=== PATIENT | male | born 1990 | race Caucasian/White ===

== ENCOUNTER 2023-03-22 05:17 | Observation (INO) ==
--- NOTE | 2023-03-21 10:13 | Anesthesiology Consultation ---
Date of Service March 21, 2023 Assessment & Plan (1) Encounter for pre-operative examination: - Pt scheduled for admission post-operatively. Plan for COVID Olivera AM DOS due to possibility that patient may have a roommate. OR aware. Olivera order placed. - COVID screening: Per assessment on 03/21: No known COVID-19 positive contacts or current COVID-19 related symptoms. Travel screen negative. At surgeon discretion if preop Covid testing being done. Chart Review Chart Review: Acceptable Risk for Surgery and Patient NOT seen in Pre Admission Testing History Surgery Operation Date: 03/22/23 07:15 Proposed Procedures p Right Tibia Open Reduction Internal Fixation - Urbano Nugent MD Height/Weight Height: 5 ft 6 in Weight: 56.699 kg Allergies Allergy/AdvReac Type Severity Reaction Status Date / Time amoxicillin Allergy Hives/Nause Verified 03/22/23 05:47 a Medications Home Medications Medication Instructions Recorded Confirmed Last Taken oxycodone 5 mg tablet 5 mg PO Q6H PRN pain #12 tabs 03/16/23 03/22/23 03/22/23 04:00 Active Medications Generic Name Dose Route Start Last Admin Trade Name Freq PRN Reason Stop Dose Admin Lactated Ringer's 1,000 mls @ 15 mls/hr 03/22/23 06:00 03/22/23 05:44 Lr IV 03/23/23 05:59 15 mls/hr .Q24H SERGIO Administration Past Medical History Medical History History of asthma "Asthmatic bronchitis" as child History of COVID-19 Early 2020- loss of taste > resolved History of fracture of rib 12/2022, Left #5-6 ribs (r/t fall from snowboarding) > resolved/no current issues Past Surgical History Surgical History Hx of wisdom tooth extraction Social History Smoking Status: Current every day smoker tobacco type: e-cigarettes Smoking cigarettes per day: CIGARETTES YEARS AGO; VAPES ON DAILY BASIS Do You Dip or Chew Tobacco: No Hx Alcohol Use: Yes alcohol intake frequency: a few times a week Hx Substance Use: Yes (MEDICAL CARD) substance use type: marijuana Last Used Substance Other:: DAILY Physical Exam Vital Signs Last Vital Signs Temp 37.1 C 03/22/23 05:41 Pulse 73 03/22/23 05:41 Resp 20 03/22/23 05:41 BP 149/92 H 03/22/23 05:41 Pulse Ox 95 03/22/23 05:41 O2 Del Method Room Air 03/22/23 05:41 Testing Laboratory Results Blood Type O Negative 03/22/23 05:38 Antibody Screen NEGATIVE 03/22/23 05:38 Chest X-Ray Date: 12/07/22 No acute displaced rib fractures. Lungs are clear.
[~2023-03-22 05:17] MED LIST: ALLERGY Noted to ORDERED Medication SCH
[2023-03-22] MEDS ORDERED: LR 15ML/HR IV SCH (06:00)
[2023-03-22] MEDS ORDERED: ceFAZolin 2000MG 2,000 MG/15 ML SYR IV SCH (06:00)
[2023-03-22] MEDS ORDERED: ROPIVACAINE 0.5% 5 MG/ML 30 ML VIAL ONE (06:16)
[2023-03-22] MEDS ORDERED: SODIUM CHLORIDE 0.9% PF INJ 10 ML VIAL ONE (06:22)
[2023-03-22] MEDS ORDERED: Nursing to Pharmacy Communication SCH (06:30)
[2023-03-22] MEDS ORDERED: ceFAZolin 2,000 MG/15 ML IV PUSH IV ONE (06:32)
--- NOTE | 2023-03-22 06:38 | History & Physical Bridge Note ---
Date of Service March 22, 2023 History & Physical Bridge Note I have examined the patient, reviewed the History & Physical and in the interval since the performance of the History & Physical I have noted the following changes of clinical significance: no changes noted Leg inspected. Swelling mild to moderate with no blistering or breaks in the skin. Yellowish discoloration. Skin wrinkles present. Numbness on the dorsum of the foot lateral border of the foot and lateral plantar foot. Some numbness over the dorsal toes. Intact sensation in the medial arch and medial foot. Intact sensation first webspace. He cannot activate ankle plantarflexion or dorsiflexion. Perhaps he can activate a trace bit of foot eversion. He can extend big toe and little toes with 4 out of 5 strength. He can plantarflex big toe and little toes with the same. DP pulses 1+. Discussed surgical plan. Plan ORIF through anterolateral plating anterior approach. Possible syndesmosis fixation. Will evaluate and monitor the posterior fracture which is nondisplaced. If any changes would need to turn prone and do posterior malleolar plating.
[2023-03-22] MEDS ORDERED: LIDOCAINE 2% 2 ML VIAL/AMP(20MG/ML) INFIL ONE (06:43)
[2023-03-22] MEDS ORDERED: DEXAMETHASONE SOD INJ 4 MG/ML VIAL ONE (06:43)
[2023-03-22] MEDS ORDERED: PROPOFOL IV EMULSION 10 MG/ML 20 ML VIAL IV ONE (06:43)
[2023-03-22] MEDS ORDERED: ONDANSETRON INJ 2 MG/ML 2 ML VIAL ONE (06:43)
[2023-03-22] MEDS ORDERED: MIDAZOLAM HCL 1 MG/ML 2ML VIAL ONE ×2 (06:44→06:56)
[2023-03-22] MEDS ORDERED: fentaNYL citrate PF 100 MCG/2 ML VIAL ONE ×2 (06:44)
[2023-03-22] MEDS ORDERED: BUPIVACAINE/EPINEPHRINE 0.5% MPF 1:200,000 30 ML VIAL ONE (07:03)
[2023-03-22] MEDS ORDERED: LIDOCAINE 1%/EPINEPHRINE 1:100,000 20 ML VIAL ONE (07:04)
[2023-03-22] MEDS ORDERED: HYDROmorphone INJ 1 MG/ML SYRINGE IV PRN (07:13)
[2023-03-22] MEDS ORDERED: ONDANSETRON INJ 2 MG/ML 2 ML VIAL IV PRN (07:13)
[2023-03-22] MEDS ORDERED: LABETALOL HCL IV 5 MG/ML 20ML IV PRN (07:13)
[2023-03-22] MEDS ORDERED: ATROPINE SULFATE 0.1 MG/ML 10ML SYR IV PRN (07:13)
[2023-03-22] MEDS ORDERED: PROMETHAZINE HCL 6.25 MG in SODIUM CHLORIDE 0.9% 50 ML IV PRN (07:13)
[2023-03-22] MEDS ORDERED: TRANEXAMIC ACID / 0.7% NACL 1000MG/100ML BAG IV ONE (08:05)
[2023-03-22] MEDS ORDERED: TRANEXAMIC ACID / 0.7% NACL 1,000 MG/100 ML BAG IV ONE ×2 (08:15→17:50)
--- NOTE | 2023-03-22 11:15 | Fluoroscopy Report ---
FL tibia/fibula RT 2V CLINICAL HISTORY: RT TIBIA 0RIF TECHNIQUE: 6 views were obtained with the C-arm in the OR with the above procedure. Total fluoroscopy time was 88 seconds. Radiation dose was 1.02 mGy. Comparison: Comparison is made to CT tibia and fibula 03/16/2023 FINDINGS/IMPRESSION: Intraoperative images were obtained of open reduction internal fixation of tibia l fracture with plate and screw fixation hardware placement. Please correlate with intraoperative fluoroscopy and operative report. ACT 112: Negative or not required by law. Electronically signed by: Magdy Linton M.D. 03/22/2023 11:14 AM
--- NOTE | 2023-03-22 11:45 | Operative Report ---
Post Operative Report Pre & Post Diagnosis Operation Date: 03/22/23 07:15 Pre-Op Diagnosis: Right tib-fib fracture Post-Op Diagnosis: Same I identified the patient and participated in the time-out.: Yes Procedure Operation Date: 03/22/23 07:15 Actual Procedures p Right Tibia Open Reduction Internal Fixation right tibia fracture with open reduction internal fixation of distal tibiofibular syndesmosis (Right) - Urbano Nugent MD Surgeon Urbano Nugent MD Efficiency Analyst THELMA Brown, Shari Francisco, MS 2, edwin Sutton, fellow Estimated Blood Loss 25 Findings Consistent with Post-Op Diagnosis Specimens None Anesthesia Type General Regional Complications none Disposition Accompanied Patient To Recovery: No Disposition: Recovery Room Indications Don is 33. He injured his right leg 1 week ago. He has a proximal fibular fracture. Oblique us spiral distal tibia fracture beginning about 3 cm above the ankle joint. There is comminuted nondisplaced extension into the posterior and medial malleolus. There is also suspected syndesmotic disruption. Treatment options risks benefits were discussed and recommended operative intervention he agreed to proceed. Description of Procedure Informed consent. Patient identified. He identified the operative site as the right ankle. I marked with my initials. Preop surgical timeout performed. Preop dose of IV antibiotics given. He was taken to the operating room positioned supine on the OR table. A bump was placed under the right hip. Tourniquet on the right thigh. The leg was shaved and then scrubbed. Prepped and draped in the usual sterile fashion. The fracture was unstable. Care was taken to maintain longitudinal traction and prevent fracture displacement. Swelling was mild to moderate without any significant break in the skin. DVT prophylaxis with foot pumps intraoperatively. Postop with mechanical devices early mobility and chemoprophylaxis. Preop dose of TXA. Fluoroscopic guidance was utilized throughout the surgical procedure. A bone foam bump was placed under the right leg. Limb exsanguinated with the Esmarch. Tourniquet inflated 250 mmHg. I made an approximate 20 cm incision paralleling the course of the tibialis anterior tendon. This was followed by blunt dissection down through the subcutaneous tissues. The anterior compartment fascia was identified and opened just lateral to the crest of the tibia. The tibialis anterior tendon was identified. It was exposed down to the level of the retinaculum. The retinaculum and anterior compartment tendons were then elevated up off of the anterior joint capsule. The fracture site was identified and cleaned of hematoma and comminuted bone fragments as well as irrigated. It was then reduced anatomically with a alligator clamp placed directly on bone under direct visualization. I then inserted two 3.5 mm bicortical lag screws with excellent purchase and stability. I then selected a 10 hole anterolateral Synthes plate. The plate was positioned visually and fluoroscopically to allow adequate proximal and distal fixation. I provisionally fixed it distally with a pin and then inserted a 3.5 mm bicortical regular cortical screw proximally. Just at the level of the fracture site. I then inserted 5 distal locking screws which were unicortical. In order to prevent displacement of the posterior malleolus fracture I limited the length of the screws to 24 to 26 mm. I then placed 3 additional bicortical proximal locking screws. The fracture was anatomically aligned. The hardware was in good position and multiplanar fluoroscopy. The posterior malleolar fracture which was evaluated prior to the start of the surgery with fluoroscopy, was unchanged in alignment. The syndesmosis was grossly unstable. I took out the most proximal of the distal screws. The ankle was placed into maximum dorsiflexion and a large bone clamp was placed across the ankle. This was done after doing some fluoroscopic assessment of optimal places based upon the medial fracture pattern which showed some comminution at the fracture site as well as a nondisplaced fracture going into the medial malleolus. I do not think that a tight rope would gain adequate purchase over here and elected to go with multiple tricortical positioning screws. I made a 5 cm incision over the distal fibula and bluntly dissected down to the bone. The large bone clamp was placed directly on the fibula and then on good bone medially. With the ankle in maximum dorsiflexion the clamp was tightened. I then using fluoroscopic guidance medial forestry pilot hole from the fibula across the tibia posterior to the plate between the proximal and distal row of interlocking screws within the distal array of the plate. I inserted a 50 mm screw which was tricortical but did not go through the medial cortex. This was due to to medial cortex comminution and also not wanting to displace any of the medial fractures. The medial malleolar fracture was able to be visualized and was nondisplaced. Coronal plane. A second 3.5 mm try cortical positioning screw for the syndesmosis was then inserted just above this in a similar fashion. I was then able to reinsert the more proximal of the distal locking screws. The syndesmosis was stable. The fracture and hardware were in good position and the posterior malleolus fracture was not displaced at all. The tourniquet is let down after about 90 minutes of inflation and meticulous hemostasis was performed. Copious irrigation was done and the soft tissues were kept moist throughout the surgical procedure. The lateral incision was closed with 2-0 Vicryl and noemy. The anterior incision was closed with 0 Vicryl for the deep layer followed by 2-0 Vicryl's and noemy on the skin. The leg was cleaned with wet and dry sponges and a soft sterile dressing was applied Xeroform 4 x 4's ABD soft wrap and a posterior splint with the ankle in neutral position. Padding on the heel and malleoli. He was then awakened from anesthesia and taken to recovery in stable condition. There were no specimens or complications. Counts were correct and blood loss is estimated to be 25 cc. At the conclusion of the operation spoke to his significant other and parents. Discussed findings and postoperative plan. The interfrag screws were 3.5 mm in diameter. 3 bicortical locking screws were placed proximally along with a bicortical regular cortical screw. 5 distal locking screws were inserted. Synthes hardware was utilized. The syndesmotic screws were 3.5 mm Synthes screws. The plan is admission to the hospital for pain control and elevation. The anterior compartment was left open. Nonweightbearing. Chemoprophylaxis beginning in the morning. I attest to the content of the Intraoperative Record and any orders documented therein. Any exceptions are noted below.
--- NOTE | 2023-03-22 11:57 | Operative Report ---
Post Operative Report Pre & Post Diagnosis Operation Date: 03/22/23 07:15 Pre-Op Diagnosis: Right Lower Leg Posterior Malleolus Fracture Post-Op Diagnosis: Right Lower Leg Posterior Malleolus Fracture I identified the patient and participated in the time-out.: Yes Procedure Operation Date: 03/22/23 07:15 Actual Procedures p Right Tibia Open Reduction Internal Fixation(Right) - Urbano Johnson MD Surgeon Dr Johnson Independent Crop Consultant THELMA Brown, Shari Francisco, MS 2, edwin Sutton, fellow Estimated Blood Loss 25 Findings Consistent with Post-Op Diagnosis Specimens none Description of Procedure Pt was taken to operating room, placed under general anesthesia with peripheral nerve block. Pt was given 2g Ancef IV. Prepped and draped in sterile fashion. I was present during the entire case and assisted with positioning, instrumentation, closure and dressings. Please see Dr. Johnson's op report for further detail. Pt was awake and transferred to PACU in stable condition I attest to the content of the Intraoperative Record and any orders documented therein. Any exceptions are noted below.
[2023-03-22] MEDS ORDERED: MoRPHine SULFATE 2 MG/ML CARP IV PRN (13:05)
[2023-03-22] MEDS: ONDANSETRON INJ 2 MG/ML 2 ML VIAL IV PRN (13:52)
[2023-03-22] MEDS: SODIUM CHLORIDE 0.9% 1000ML 1,000 ML IV SCH (14:01)
[2023-03-22] MEDS: oxyCODONE/ACETAMINOPHEN 5mg/325mg TAB PO PRN ×3 (15:04→23:41)
[2023-03-22] MEDS: MoRPHine SULFATE 4 MG/ML 1 ML CARP\\VIAL IV PRN ×3 (16:09→20:52)
[2023-03-22] MEDS: ceFAZolin 2000MG 2,000 MG/15 ML SYR IV SCH (17:57)
--- NOTE | 2023-03-22 19:59 | Orthopedic Progress Note ---
Date of Service March 22, 2023 Assessment & Plan (1) Closed fracture of distal end of right tibia: Plan: Findings discussed. Surgery reviewed. Plan is pain control elevation icing. DVT prophylaxis starting in the morning. I think his block is still functioning to account for his sensory and motor deficits. Nonweightbearing. Postop antibiotics. Stable postop. (2) Closed fracture of proximal end of right fibula: Admission and Anticipated Discharge Date Admission Date: March 22, 2023 Subjective Feels well. The block feels like it is wearing off. Increased pain. Physical Exam Physical Exam: Toes are warm with capillary refill less than 2 seconds. He has 4 out of 5 plantarflexion strength but cannot dorsiflex the toes. DP pulses 1+. Swelling is minimal. Intact sensation plantarly but numb dorsally. Likely secondary to the block Results & Data Vital Signs (Past 12 Hours) Vital Signs Temp Pulse Pulse Resp BP Pulse Ox O2 Del Method 03/22/23 19:34 36.7 C 77 18 119/79 100 Room Air 03/22/23 16:06 36.7 C 88 14 128/85 99 Room Air 03/22/23 15:06 36.9 C 89 16 142/88 H 100 Room Air 03/22/23 14:01 37.0 C 66 16 137/79 99 Room Air 03/22/23 13:35 36.8 C 71 16 132/81 98 Room Air 03/22/23 13:09 36.7 C 86 16 121/75 98 Room Air 03/22/23 12:45 68 12 119/69 94 Room Air 03/22/23 12:30 72 12 119/73 95 Room Air 03/22/23 11:50 85 18 134/84 93 Room Air 03/22/23 12:20 78 12 122/66 95 Room Air 03/22/23 12:10 77 12 131/65 94 Room Air 03/22/23 12:00 78 14 127/72 93 Room Air 03/22/23 11:40 94 H 20 161/85 H 97 Room Air 03/22/23 11:37 36.1 C L 90 16 141/82 H 98 Room Air (1) Closed fracture of distal end of right tibia Encounter type: initial encounter Fracture morphology: other fracture Qualified Code(s): S82.391A - Other fracture of lower end of right tibia, initial encounter for closed fracture (2) Closed fracture of proximal end of right fibula Encounter type: initial encounter Fracture morphology: other fracture Qualified Code(s): S82.831A - Other fracture of upper and lower end of right fibula, initial encounter for closed fracture
[2023-03-22] MEDS ORDERED: HYDROmorphone INJ 0.5 MG/0.5 ML SYR IV STA (22:09)
[2023-03-23] MEDS: MoRPHine SULFATE 4 MG/ML 1 ML CARP\\VIAL IV PRN ×7 (01:12→16:15)
[2023-03-23] MEDS: ceFAZolin 2000MG 2,000 MG/15 ML SYR IV SCH (01:48)
[2023-03-23] MEDS: SODIUM CHLORIDE 0.9% 1000ML 1,000 ML IV SCH (02:10)
[2023-03-23] MEDS: oxyCODONE/ACETAMINOPHEN 5mg/325mg TAB PO PRN ×3 (04:33→18:32)
[2023-03-23] MEDS: ACETAMINOPHEN 500 MG TAB PO PRN ×2 (05:02→07:35)
[2023-03-23] MEDS: APIXABAN 2.5 MG TAB PO SCH ×2 (09:05→21:34)
[2023-03-23] MEDS: ONDANSETRON INJ 2 MG/ML 2 ML VIAL IV PRN (09:10)
--- NOTE | 2023-03-23 10:08 | Orthopedic Progress Note ---
Date of Service March 23, 2023 Assessment & Plan Admission and Anticipated Discharge Date Admission Date: March 22, 2023 Subjective Patient was seen and examined bedside. He is postop day 1 status post right OR IF of tibia and syndesmotic for his fixation. Patient reports that he is not doing great. He is in a considerable amount of pain. He says that he had a horrible night and was in tears at one point. He did not get much sleep. He says that they have been giving him Percocet and Tylenol for pain. They discontinued his IV this morning and he has not had any more IV pain meds. He says that his pinky is somewhat tingly. He denies any complete numbness in his foot. He says that he has a burning sensation over the medial and lateral aspect of his foot, mostly on the medial aspect. He has been nauseous from the pain meds. He denies any vomiting. Denies any fevers or chills but says that when he is in pain he gets shaky. Physical Exam 2 Physical Exam: Patient is lying down in the bed, appears to be in pain. Splint is intact and does not appear to be too tight. Patient is able to wiggle his toes. Skin is warm and pink. Sensation intact to light touch of all 5 digits. He is able to bend his knee. He is able to do a straight leg raise. Results & Data Vital Signs (Past 12 Hours) Vital Signs Temp Pulse Resp BP Pulse Ox O2 Del Method 03/23/23 07:11 36.8 C 68 14 139/91 100 Room Air 03/23/23 03:20 36.3 C L 73 16 141/89 H 100 Room Air 03/22/23 23:35 36.7 C 86 18 130/79 98 Room Air Laboratory Results Patient is a 33-year-old male postop day 1 status post right leg ORIF tibia and syndesmotic fixation Keep splint in tact. Plan now is to help control the patient's pain better. Patient is getting 2 percocet every 4 hours and 4mg morphine every 4 hours and is reporting that isnt touching his pain. Could add scheduled tramadol or Dilaudid prn for breakthrough pain. Will discuss with Dr Nugent. Anette for nausea. Continue strict icing and elevating. Eliquis 2.5mg BID for DVT phx started this morning. TEDS and SCDs in place. NWB x 6 weeks. Vitals are stable. Labs are pending.
[2023-03-23 10:39] LABS: Basophils # (auto) 0.03 K/uL (0-0.2); Basophils % (auto) 0.3 %; Eosinophils % (auto) 1.1 %; Hematocrit (blood only) 36.3 % (42.0-52.0); Hemoglobin 12.6 g/dl (14.0-18.0); Immature Granulocytes # (auto) 0.03 K/uL (0.01-0.20); Immature Granulocytes % (auto) 0.3 %; Lymphocytes # (auto) 2.03 K/uL (1.2-3.4); Lymphocytes % (auto) 21.8 %; Mean Corpuscular Hemoglobin 30.2 pg (25.0-34.0); Mean Corpuscular Hgb Conc 34.7 g/dL (32.0-36.0); Mean Corpuscular Volume 87.1 fL (80.0-100.0); Mean Platelet Volume 10.8 fL (9.4-12.4); Monocytes # (auto) 0.82 K/uL (0.11-0.59); Monocytes % (auto) 8.8 %; Neutrophils % (auto) 67.7 %; Platelet Count 223 K/uL (130-400); RDW Coefficient of Variation 11.9 % (11.5-14.5); RDW Standard Deviation 38.3 fL (36.4-46.3); Red Blood Count 4.17 M/uL (4.70-6.10); White Blood Count 9.31 K/ul (4.8-10.8)
[2023-03-23 10:53] LABS: BUN Creatinine Ratio 12.2 (10-20); Creatinine Clr Calc Pharmacy 107.1 ml/min; Est GFR (African American) 136.6 ml/min; Est GFR (Non-African American) 117.8 ml/min; Potassium 3.8 mmol/L (3.5-5.1)
--- NOTE | 2023-03-23 11:09 | Progress Notes ---
DATE OF SERVICE: 03/23/2023. Significant pain. Reasonably controlled with medicine. Seen in conjunction with the physician's assistant associate full professor. For further details, refer to their dictation. Vital signs stable. Afebrile. Labs are noted. DP pulse 1+. Capillary refill less than 2 seconds. Sensation intact and essentially normal in the f our lesser toes, but he reports slight numbness lateral border of the foot with more intense numbness on the dorsum of the foot involving the second webspace, big toe and medial border of the foot. Sen sation on the bottom of the foot is normal or nearly normal. Sensation on top of the foot feels bett er than it did before surgery. He has 5-/5 strength on flexing the toes. He cannot activate ankle e xtension. He has trace ankle eversion and inversion. There is 5-/5 strength on lesser toe and great toe extension. He cannot dorsiflex ankle at this point. We will continue to monitor. I do not think that he is suitable for discharge as he is requiring IV medications to control pain. There is no pain with passive movement of his toes and there is no sign ificant swelling. I do not have concern regarding compartment syndrome. Recommend that he continue to elevate, ice remain nonweightbearing. We will add Ultram for additional pain control and reassess tomorrow with dressing change. Job ID: [id number]
[2023-03-23] MEDS: traMADol HCL 50 MG TABLET PO PRN ×2 (14:38→21:35)
[2023-03-24] MEDS: oxyCODONE/ACETAMINOPHEN 5mg/325mg TAB PO PRN ×2 (04:13→09:37)
[2023-03-24] MEDS: APIXABAN 2.5 MG TAB PO SCH (09:37)
--- NOTE | 2023-03-24 10:29 | Orthopedic Progress Note ---
Date of Service March 24, 2023 Assessment & Plan (1) Closed fracture of distal end of right tibia: Plan: Patient is doing much better and pain controlled. He is deemed medically and stable for discharge today. Follow up in office as scheduled. Keep splint in tact, clean and dry. Will rx Percocet and tramadol for pain. Eliquis 2.5BID for DVT prophylaxis. Miralax and Colace to prevent constipation. NWB with crutches. Advised patient to watch out for any fevers, chills, CP, SOB, discoloration distally, numbness in the toes, pain out of proportion. Patient seen and evaluated with physicians recruitment and outreach assistant. For further details refer to their dictation. Significant improvement in pain. On exam he has numbness over the dorsal aspect of the foot and lateral border of the foot which is improved compared to previous. He reports normal sensation on the medial aspect of the foot and plantar aspect. Normal or nearly normal sensation in the first webspace. He has 4- out of 5 plantarflexion strength of the ankle and toes. He has 4- out of 5 extension strength of the toes. I think he can initiate tibialis anterior with minimal translation. I can feel what I think is a contraction but not 100% at this time. He does have 4- out of 5 strength within inversion and eversion of the foot. DP and PT pulses are 1+. Incisions are benign swelling is minimal there is no drainage erythema or blistering. Compartments of the foot and leg are soft. Cap refill less than 2 seconds foot warm. Plan is discharged home. Elevate ice nonweightbearing. He will be reapplied in the splint today with a soft dressing Xeroform 4 x 4 soft wrap. Pain medicine. Percocet and Ultram. Watch out for any severe pain swelling fevers tingling numbness. Follow-up on Tuesday as scheduled in PT. We will change to a fracture boot continue nonweightbearing and work on early range of motion. Stool softener. He will also continue with his Eliquis. Admission and Anticipated Discharge Date Admission Date: March 22, 2023 Subjective Patient was seen and examined bedside. He is postop day 2 status post right ORIF of tibia and syndesmotic for his fixation. Patient reports that he is feeling much better and is pain is much better controlled. He is taking percocet and tramadol. Denies F/C, CP/ SOB, nausea. Denies posterior calf pain. He has some tingling in his pinky toe. Physical Exam Physical Exam: Patient is lying down in the bed, awake and appearing comfortable Splint is intact and does not appear to be too tight. Patient is able to wiggle his toes. Skin is warm and pink. Sensation intact to light touch of all 5 digits. He is able to bend his knee. He is able to do a straight leg raise. Splint taken down to reveal in tact incisions. No major drainage, surrounding erythema or signs of infection. Patient is able to slightly DF/PF his ankle. Redressed incisions and reapplied splint. (1) Closed fracture of distal end of right tibia Encounter type: initial encounter Fracture morphology: other fracture Qualified Code(s): S82.391A - Other fracture of lower end of right tibia, initial encounter for closed fracture
[2023-03-24] MEDS: traMADol HCL 50 MG TABLET PO PRN (11:58)
[2023-03-24] MEDS ORDERED: POLYETHYLENE (MIRALAX) 17 GM PACK PO SCH (12:00)
--- NOTE | 2023-03-25 11:23 | Anesthesiology Progress Note ---
Date of Service March 25, 2023 Anesthesia Post Procedure Pain Intensity Right Foot: Pain Intensity: 3 Transfer of Care Handoff Completed per policy Notes Mental Status: alert / awake / arousable Patient Amnestic to Procedure: Yes Nausea / Vomiting: adequately controlled Pain: adequately controlled Airway Patency, RR, SpO2: stable & adequate BP & HR: stable & adequate Hydration State: stable & adequate Anesthetic Complications: no major complications apparent
--- NOTE | 2023-03-30 14:40 | Discharge Summary ---
Date of Service March 30, 2023 Admission HPI Per Admitting Provider Patient is a 33-year-old male who underwent a right open reduction internal fixation right tibia fracture with Dr. Ari Martínez. He was admitted to our service for observation. He had difficulty controlling his pain and stayed another night to help with pain control. On postop day 2 he was doing much better and his pain was controlled with oral Percocet and tramadol. His splint was taken down and incisions checked. No signs of infection. No signs of DVT or compartment syndrome. Distal extremity was redressed and splint was reapplied. He was deemed medically and orthopedically stable for discharge on postop day 2. He will be on Eliquis for DVT prevention and he was prescribed tramadol and Percocet for pain control. He will use crutches and be nonweightbearing. He appointment was scheduled for him for follow-up in the office. Principal Diagnosis right open reduction internal fixation right tibia fracture Discharge Exam Patient is lying down in the bed, awake and appearing comfortable Splint is intact and does not appear to be too tight. Patient is able to wiggle his toes. Skin is warm and pink. Sensation intact to light touch of all 5 digits. He is able to bend his knee. He is able to do a straight leg raise. Splint taken down to reveal in tact incisions. No major drainage, surrounding er ythema or signs of infection. Patient is able to slightly DF/PF his ankle. Redressed incisions and reapplied splint. Discharge Data Allergies Allergy/AdvReac Type Severity Reaction Status Date / Time amoxicillin Allergy Hives/Nause Verified 03/22/23 05:47 a Procedures Performed Operation Date: 03/22/23 07:15 Actual Procedures p Right Tibia Open Reduction Internal Fixation(Right) - Urbano Nugent MD Ordered Studies 03/22/23 05:00 US - OR guided needle placemen Routine 03/22/23 07:15 FL tibia/fibula RT 2V Routine Hospital Course (1) Closed fracture of distal end of right tibia: Patient is doing much better and pain controlled. He is deemed medically and stable for discharge today. Follow up in office as scheduled. Keep splint in tact, clean and dry. Will rx Percocet and tramadol for pain. Eliquis 2.5BID for DVT prophylaxis. Miralax and Colace to prevent constipation. NWB with crutches. Advised patient to watch out for any fevers, chills, CP, SOB, discoloration distally, numbness in the toes, pain out of proportion. Total Time Total Time Spent Total Time Spent (In Minutes): 60 minutes Discharge Plan Discharge Items Patient Disposition: Home - Self-Care Reason For Visit: Right Lower Leg Unspecified Fracture Discharge Diagnosis: Status post right distal tibia fracture with syndesmotic repair Condition on Discharge: Good Activity: Per Instructions section Lifting: Wait until after follow-up appointment Bathing: Keep incision dry Exercise/Sports: Wait until after follow-up appointment Driving/Machine Use: No driving until cleared by Dr. Nugent Weightbearing: Right non-weightbearing Non-emergency contact: Surgeon Call non-emergency contact if: you have any medication questions, your pain is not controlled, your temperature is above 101.5, your wound has increased redness, your wound has increased drainage and your wound pain has increased Follow-up/Referrals: Urbano Nugent MD [Surgeon] - 04/05/23 10:30 am [facility] [Primary Care Provider] - Diet: Regular Addtl Attending Provider Instructions: Post-operative Instructions Dear Patient and Family/Friends, Before you are discharged from the hospital, it is important to know what to expect when you get home after surgery. To that end, we have created this sheet of discharge instructions which covers many commonly asked questions. Make sure you go through this sheet in its entirety with your nurse before you are discharged. Please note that we will go over the specifics of your surgery and recovery when you return for your first post-operative visit. Sincerely, Dr. Nugent Pain Expect to be in a fair amount of pain after surgery. Remember, our goal is not to eliminate your pain, but to make it tolerable. It is a good idea to stay ahead of your pain by taking the medications you were prescribed once you get home. Typically, the pain starts improving 3-7 days after surgery. You should start weaning off the narcotic pain medication (oxycodone, hydrocodone, hydromorphone, morphine) as soon as your pain improves. Please call our office if your pain is not adequately controlled. Ice Ice your operative site at least 5 times a day for 15-30 minutes at a time. Make sure you have a thin cloth between the ice or cooling unit and your skin to prevent malcolm bite. This is especially important if you received a nerve block. Continue icing your operative site for the first 5-7 days after surgery, then as needed. Diet/Nausea/Vomiting Start by drinking clear liquids and eating crackers. If you can tolerate this, then you may resume your normal diet. If you feel nauseated or vomit, take Zofran/ondansetron (if prescribed). Please call our office if you have intractable nausea or vomiting, or, if after hours, you may go to the Emergency Room for help. Constipation Constipation is a common side effect of narcotic pain medication. If you have not had a bowel movement within 2 days after surgery, we recommend purchasing an over the counter laxative such as Milk of Magnesia, Dulcolax, or Miralax from a local pharmacy, and taking it as instructed. Call our clinic if any questions. Slings and Braces Please keep your splint in-tact, clean and dry. You may sponge bath or shower with a shower cover overtop of splint to ensure it does not get wet. You will eventually be transitioned into a walking boot. The specifics on when this will be will be discussed at your first follow up appointment. Weight bearing and Range of Motion. You will not be able to bear any weight on your right leg for the first 6 weeks. You may use crutches to assist in ambulation Physical therapy Please attend physical therapy as instructed. They may give you some exercises to do on your own at home. Please make sure to do these as instructed to facilitate in your rehab and recovery. DVT Prophylaxis/DARCI stockings Please take 2.5mg Eliquis twice a day for 6 weeks. If you were given white stockings, these are to be worn at all times except to shower (on both legs) for the first 2 weeks after surgery. These measures are to help prevent any blood clots. Driving You may not drive while taking narcotic pain medication or while in a cast, splint, sling or brace. You, the patient, need to make the final determination about when you are safe to drive, however, the earliest you may consider driving after surgery is below: Hand/Wrist/Elbow Surgery: 3 days Shoulder Surgery: 2 weeks Hip,/Knee/Ankle Surgery: 4 weeks Fracture repair: 6 weeks Return to Work Your return to work depends on what surgery was done and what type of work you do. Please bring any paperwork your employer needs completed to your first post-operative visit. Also, bring a description of your job duties, as this helps us to understand what risks you may face at work. Travel Avoid long distance travel (greater than 1 hour) in airplanes and cars for the first 6 weeks after surgery. If you must travel, you need to have a Doppler ultrasound done before you travel to rule out a blood clot in your legs. Follow-up Follow up as scheduled with Dr. Nugent in the office When to call the office It is normal to have swelling and bruising in the limb that was operated on. This will improve with time. It is also normal to have fevers for the first 2 days after surgery. Reasons you should call your doctor include: Uncontrolled pain; Nausea, vomiting, or constipation that does not improve with medication; Fevers over 101.5, chills, sweats; Drainage or bleeding from the wound; Foul odor; Spreading areas of redness; Any other concerns [phone] Pending Studies at Discharge: No Stand-Alone Forms: My [facility], Smoking Cessation Medications and DC Order Prescriptions: New oxycodone-acetaminophen [Percocet] 5-325 mg tablet 2 tab PO Q6H MDD max of 6 per day PRN (Reason: pain) Qty: 18 0RF Rx Instructions: initial script Eliquis 2.5 mg tablet 2.5 mg PO BID Qty: 30 1RF docusate sodium [Colace] 100 mg capsule 100 mg PO DAILY Qty: 20 0RF Discontinued oxycodone 5 mg tablet 5 mg PO Q6H PRN (Reason: pain) Qty: 12 0RF Rx Instructions: Initial Treatment Discharge Orders: Discharge Order (Routine); Ordered 03/24/23 Ordered By: Chago Love Admission Data Admit Date/Time: 03/22/23 13:39 Attending Provider: Urbano Nugent Admit Provider: Urbano Nugent Primary Care Provider: PCP,NO Other Interventions: Discharge Summary Assessment (RN) Last Done: 03/24/23 11:24
== END 2023-03-24 12:43 | disposition home or self-care (01) ==
LOC: 3E 05:17 → ASU 05:17